=== PATIENT | female | born 1980 | race Two or more races ===

== ENCOUNTER → 2018-05-15 | Day surgery (SDC) | payer OTHER ==
[~2018-05-15] MED LIST: NAPROXEN SODIU550 M1 PO; PRENATAL CAPLE1 EACH PO; ZITHROMAX500 MG PO
== END | disposition home or self-care (01) ==
LOC: CIR.AMB 06:24
DX: O02.1 Missed abortion (principal); Z3A.09 9 weeks gestation of pregnancy

== ENCOUNTER → 2019-03-09 | Outpatient (CLI) | payer OTHER | END | disposition home or self-care (01) | LOC: PRENATAL 10:27 | DX: O36.80X1 Pregnancy with inconclusive fetal viability, fetus 1 (principal); O09.521 Supervision of elderly multigravida, first trimester; O34.11 Maternal care for benign tumor of corpus uteri, first trimester; O09.211 Supervision of pregnancy with history of pre-term labor, first trimester ==

== ENCOUNTER → 2019-05-13 | Outpatient (CLI) | payer OTHER | END | disposition home or self-care (01) | LOC: PRENATAL 10:00 | DX: O35.3XX0 Maternal care for (suspected) damage to fetus from viral disease in mother, not applicable or unspecified (principal); O09.522 Supervision of elderly multigravida, second trimester; O34.12 Maternal care for benign tumor of corpus uteri, second trimester ==

== ENCOUNTER 2019-09-24 05:53 | Inpatient (IN) | payer OTHER ==
[~2019-09-24] VITALS: Ht 167.6 cm; Wt 74.8 kg
[2019-09-24] MEDS ORDERED: PRENATAL TABLE1 EAC1 PO (06:55)
[2019-09-26] MEDS ORDERED: IBU400 MG PO (08:40)
[2019-09-26] MEDS ORDERED: CEFADROXIL500 MG PO (08:40)
== END 2019-09-26 12:39 | disposition home or self-care (01) | DRG 807 ==
LOC: LDR 05:53 → SURG-SUITE 05:53
PROVIDERS: ADMIT Obstetrics & Gynecology; ATTEND Obstetrics & Gynecology
PROC: 10E0XZZ Delivery of Products of Conception, External Approach (ICD-10-PCS; principal; 2019-09-24)
PROC: 10907ZC Drainage of Amniotic Fluid, Therapeutic from Products of Conception, Via Natural or Artificial Opening (ICD-10-PCS; 2019-09-24)
PROC: 0W8NXZZ Division of Female Perineum, External Approach (ICD-10-PCS; 2019-09-24)
PROC: 3E033VJ Introduction of Other Hormone into Peripheral Vein, Percutaneous Approach (ICD-10-PCS; 2019-09-24)
PROC: 4A1HXCZ Monitoring of Products of Conception, Cardiac Rate, External Approach (ICD-10-PCS; 2019-09-24)
DX: O80 Encounter for full-term uncomplicated delivery (principal); Z37.0 Single live birth; Z3A.39 39 weeks gestation of pregnancy; Z20.828 Contact with and (suspected) exposure to other viral communicable diseases

== ENCOUNTER 2024-11-27 09:00 | Day surgery (SDC) | payer OTHER ==
[2024-11-25 10:31] VITALS: BP 120/78
[2024-11-25 11:01] LABS: BASO % 1.1 % (0.1-1.2); EOS # 0.23 (0.04-0.54); EOS % 4.2 % (0.7-7.0); LYMPH # 1.59 (1.18-3.74); LYMPH % 28.9 % (19.3-53.1); MEAN PLATELET VOLUME 11.90 fl (9.4-12.4); MONO # 0.33 (0.24-0.82); MONO % 6.0 % (4.7-12.5); NEUT # 3.28 (1.56-6.13); NEUT % 59.6 % (34.0-71.1); RED CELL DISTRIBUTION WIDTH 11.8 % (11.6-14.4)
[2024-11-25 11:08] LABS: URINE APPEARANCE Clear; URINE BILIRRUBIN Negative (NEGATIVE); URINE BLOOD Negative; URINE COLOR Yellow; URINE GLUCOSE Negative (NEGATIVE); URINE KETONE Trace (NEGATIVE); URINE LEUKOCYTE Small; URINE NITRATE Negative; URINE PROTEIN Negative (NEGATIVE); URINE UROBILINOGEN 0.2 E.U./dl
[2024-11-25 11:11] LABS: URINE BACTERIA 2045.9 uL (0.0-1933); URINE EPITHELIAL CELLS 50.2 uL (0.0-38.8); URINE RBC 6.1 uL (0.0-20.8); URINE WBC 33.6 uL (0.0-23.2)
[2024-11-25 11:22] LABS: URINE CAST 0.14 uL (0.0-1.40)
[2024-11-25 11:33] LABS: INR 1.12
[2024-11-25 11:48] LABS: BUN CREA RATIO 20.0 (7.0-25.0); CREATININE SERUM 0.81 mg/dL (0.55-1.02); GFR 77.17; GLUCOSE FASTING 83.0 mg/dL (65-100); OSMOLALITY SERUM 280.0 MOSM/KG (275-295)
[~2024-11-27] VITALS: Ht 167.6 cm; Wt 62.6 kg
[~2024-11-27 09:00] MED LIST changes: +CEFADROXIL500 MG PO; +IBU400 MG PO; +PRENATAL TABLE1 EAC1 PO; +TAMOXIFEN CITRA20 MG PO
[2024-11-27] MEDS ORDERED: CEFAZOLIN SODIUM 1,000 MG VIAL ONE (10:29)
[2024-11-27] MEDS ORDERED: LIDOCAINE HCL 1%/EPINEPHRINE 20ML VIAL IJ ONE (11:54)
[2024-11-27] MEDS ORDERED: HEPARIN SODIUM,PORCINE/PF 100 UNIT/ML SYRINGE IV ONE (11:54)
[2024-11-27] MEDS ORDERED: BUPIVACAINE HCL/MPF 0.5% 30ML VIAL ONE (11:54)
[2024-11-27] MEDS ORDERED: TRAM1TAB98 PO (12:46)
== END 2024-11-27 15:30 | disposition home or self-care (01) ==
LOC: CIR.AMB 09:00
PROVIDERS: ATTEND Surgery
DX: C50.012 Malignant neoplasm of nipple and areola, left female breast (principal)
CPT/HCPCS: 36561; C1751